=== PATIENT | female | born 1970 | race American Indian/Alaskan Native ===

== ENCOUNTER 2016-07-15 17:15 | Emergency (ER) | payer SELFPAY ==
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
[2016-07-15] MEDS ORDERED: MORPHINE IV ONE (18:29)
[2016-07-15 18:55] LABS: Hematocrit 32.5 % (30.3-42.9); Hemoglobin 10.3 gm/dl (10.1-14.3); Mean Corpuscular HGB Conc 32 % (30-34); Mean Corpuscular Volume 78 fl (79-97); Platelet Count 317 K/mm3 (140-440); Red Blood Count 4.18 M/mm3 (3.65-5.03); Red Cell Distribution Width 18.2 % (13.2-15.2); White Blood Count 3.9 K/mm3 (4.5-11.0)
[2016-07-15 18:57] LABS: Mean Corpuscular Hemoglobin 25 pg (28-32)
[2016-07-15 19:41] LABS: Basophils % (Manual) 0 % (0.0-1.8); Blastocytes % (Manual) 0 %
[2016-07-15 19:42] LABS: Anisocytosis Few; Diff Status Complete; Poikilocytosis Few
[2016-07-15 19:48] LABS: Alanine Aminotransferase 11 units/L (7-56); Albumin 3.8 g/dL (3.9-5); Albumin/Globulin Ratio 1.5 %; Alkaline Phosphatase 62 units/L (35-129); Anion Gap 17 mmol/L; Blood Urea Nitrogen 14 mg/dL (7-17); Calcium 8.8 mg/dL (8.4-10.2); Carbon Dioxide 21 mmol/L (22-30); Chloride 105.7 mmol/L (98-107); Creatine Kinase 113 units/L (30-135); Glucose 82 mg/dL (65-100); Sodium 140 mmol/L (137-145); Total Protein 6.4 g/dL (6.3-8.2)
[2016-07-15] MEDS ORDERED: DILAUDID ONE (20:37)
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
[2016-07-15] MEDS ORDERED: DILAUDID IV ONE (20:40)
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
[2016-07-15 22:45] VITALS: BP 141/74
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
== END 2016-07-15 22:41 | disposition home or self-care (01) ==
LOC: ED 17:15
DX: M54.9 Dorsalgia, unspecified (principal); M25.551 Pain in right hip; I10 Essential (primary) hypertension; M54.2 Cervicalgia; M79.602 Pain in left arm; F17.200 Nicotine dependence, unspecified, uncomplicated; V49.49XA Driver injured in collision with other motor vehicles in traffic accident, initial encounter; Y93.9 Activity, unspecified; Y92.9 Unspecified place or not applicable; Y99.9 Unspecified external cause status
CPT/HCPCS: 36415; 70450; 71010; 72125; 72128; 72131; 72170; 73060; 73090; 80053; 82550; 84703; 85007; 85025; 96374; 96375; 99285; G0480; J1170; J2270; 80320

== ENCOUNTER 2018-09-06 22:35 | Emergency (ER) | payer OTHER ==
--- NOTE | 2018-09-06 22:44 | Event Note ---
ED Screening Note Date of service: 09/06/18 Time: 22:40 ED Screening Note: 48 y/o female comes in for Headache time 1 hour n/v photophobia. Pmh thyroiddz This initial assessment/diagnostic orders/clinical plan/treatment(s) is/are subject to change based on patients health status, clinical progression and re- assessment by fellow clinical providers in the ED. Further treatment and workup at subsequent clinical providers discretion. Patient/guardian urged not to elope from the ED as their condition may be serious if not clinically assessed and managed. Initial orders include:
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
[2018-09-07] MEDS ORDERED: TYLENOL #3 PO ONE (03:36)
[2018-09-07 04:23] VITALS: BP 153/96
== END 2018-09-07 03:50 | disposition home or self-care (01) ==
LOC: ED 22:35
DX: S01.112A Laceration without foreign body of left eyelid and periocular area, initial encounter (principal); H11.32 Conjunctival hemorrhage, left eye; H05.232 Hemorrhage of left orbit; F41.9 Anxiety disorder, unspecified; J45.909 Unspecified asthma, uncomplicated; F17.200 Nicotine dependence, unspecified, uncomplicated; Y04.8XXA Assault by other bodily force, initial encounter; Y93.89 Activity, other specified; Y92.89 Other specified places as the place of occurrence of the external cause; Y99.8 Other external cause status
CPT/HCPCS: 70450; 70486

== ENCOUNTER 2018-09-14 18:59 | Emergency (ER) | payer OTHER ==
[2018-09-14 19:31] VITALS: BP 180/114
--- NOTE | 2018-09-14 19:33 | Emergency Department Report ---
Suture/Staple Removal - HPI Chief Complaint: Laceration/Recheck/Suture Stated Complaint: STITCHES REMOVED Time Seen by Provider: 09/14/18 19:28 When Sutures or [place] Placed: 09/07/18 Wound Location: left eyebrow ED Review of Systems ROS: Stated complaint: STITCHES REMOVED Other details as noted in HPI Comment: All other systems reviewed and negative ED Past Medical Hx - Past Medical History Previous Medical History?: Yes Hx Psychiatric Treatment: Yes (Anxiety) Hx Asthma: Yes - Social History Smoking Status: Current Every Day Smoker Substance Use Type: Alcohol - Medications Home Medications: Home Medications Medication Instructions Recorded Confirmed Last Taken Type oxyCODONE /ACETAMINOPHEN [Percocet 1 tab PO Q6HR PRN #16 tablet 07/15/16 Unknown Rx 5/325] Acetaminophen/Codeine [Tylenol 1 tab PO Q6H PRN #7 tab 09/14/18 Unknown Rx /Codeine # 3 tab] Ibuprofen [Motrin 800 MG tab] 800 mg PO Q8HR PRN #14 tablet 09/14/18 Unknown Rx Suture Removal Exam - Exam General: Vital signs noted. No distress. Alert and acting appropriately. Wound: No Pathologic Erythema, No Tenderness, No Drainage, No Pus, No Wound Dehiscence Other Systems: All other systems reviewed and are unremarkable. ED Recheck MDM - Medical Decision Making pt presents for suture removal had sutures placed on 09/07/08 in the left eyebrow denies any fever, erythema, or drainage from the eyebrow pt is c/o pain around the eye which she has had since the incident she denies any vision changes or drainage from the eye states she has been taking tylenol without much relief on exam has PEERL, EOMI, resolving periorbital edema and ecchymosis pt states she knows she has HTN but is not taking her medicine for it, has not seen her PCP all sutures removed and wound is well healed, no wound dehiscence, clean, dry, intact no signs of infection advised pt continue to keep area clean and dry. may use mederma for scarring purposes. follow up with a primary care doctor in the next 2-3 days. return to the emergency room for any new or worsening symptoms. please see a primary care doctor due to your elevated blood pressure and to get back on blood pressure medication. keep a blood pressure log. do not drive or operate heavy machinery while taking pain medication Critical care attestation.: If time is entered above; I have spent that time in minutes in the direct care of this critically ill patient, excluding procedure time. ED Disposition Clinical Impression: Encounter for removal of sutures, Elevated blood pressure reading Disposition: TO HOME OR SELFCARE Is pt being admited?: No Does the pt Need Aspirin: No Condition: Stable Instructions: Suture Removal (ED) Additional Instructions: continue to keep area clean and dry. may use mederma for scarring purposes. follow up with a primary care doctor in the next 2-3 days. return to the emergency room for any new or worsening symptoms. please see a primary care d octor due to your elevated blood pressure and to get back on blood pressure medication. keep a blood pressure log. do not drive or operate heavy machinery while taking pain medication Prescriptions: Ibuprofen [Motrin 800 MG tab] 800 mg PO Q8HR PRN #14 tablet PRN Reason: Pain, Moderate (4-6) Acetaminophen/Codeine [Tylenol /Codeine # 3 tab] 1 tab PO Q6H PRN #7 tab PRN Reason: Pain , Severe (7-10) Referrals: [facility] [Outside] - 2-3 Days [facility] [Provider Group] - 2-3 Days [facility] [place] [Outside] - 2-3 Days Time of Disposition: 19:29 Print Language: DANISH
== END 2018-09-14 19:53 | disposition home or self-care (01) ==
LOC: ED 18:59
DX: S01.112D Laceration without foreign body of left eyelid and periocular area, subsequent encounter (principal); F41.9 Anxiety disorder, unspecified; J45.909 Unspecified asthma, uncomplicated; F17.200 Nicotine dependence, unspecified, uncomplicated; R03.0 Elevated blood-pressure reading, without diagnosis of hypertension; X58.XXXD Exposure to other specified factors, subsequent encounter
CPT/HCPCS: 99282

== ENCOUNTER 2019-03-11 22:04 | Emergency (ER) | payer SELFPAY ==
[2019-03-11 23:51] VITALS: BP 150/97
[2019-03-12] MEDS ORDERED: ACETAMINOPHEN 500 MG TAB ONE (00:02)
[2019-03-12] MEDS ORDERED: IBUPROFEN 800 MG TAB ONE (00:03)
[2019-03-12] MEDS ORDERED: ACETAMINOPHEN 500 MG TAB PO ONE (00:06)
[2019-03-12] MEDS ORDERED: IBUPROFEN 800 MG TAB PO ONE (00:08)
--- NOTE | 2019-03-12 01:04 | XRay Report ---
LEFT EYE CORTICAL 3 VIEWS INDICATION / CLINICAL INFORMATION: Left ankle pain. COMPARISON: None available. FINDINGS: There is suggestion of slight soft tissue swelling over the lateral malleolus. Low-attenuation and sl ight cortical irregularity is demonstrated in the medial talus, consistent with degenerative change. IMPRESSION: Focal degenerative change and early osteochondral defect of the surface of the medial talus. No acute fracture. Signer Name: Randy Lay MD Signed: 03/12/2019 1:00 AM Workstation Name: [id number]
--- NOTE | 2019-03-12 01:06 | XRay Report ---
LEFT HIP 2 VIEWS INDICATION / CLINICAL INFORMATION: left hip pain. COMPARISON: None available. FINDINGS: No significant degenerative change. No fracture or other acute abnormality. Signer Name: Randy Lay MD Signed: 03/12/2019 1:01 AM Workstation Name: [id number]
--- NOTE | 2019-03-12 01:06 | XRay Report ---
LEFT SHOULDER 3 VIEWS INDICATION / CLINICAL INFORMATION: left shoulder pain. COMPARISON: None available. FINDINGS: No fracture, dislocation or other significant abnormality. Signer Name: Randy Lay MD Signed: 03/12/2019 1:02 AM Workstation Name: [id number] [id number]
== END 2019-03-12 01:44 | disposition left against medical advice (07) ==
LOC: ED 22:04
DX: M79.602 Pain in left arm (principal); Z53.21 Procedure and treatment not carried out due to patient leaving prior to being seen by health care provider

== ENCOUNTER 2019-03-29 07:36 | Emergency (ER) | payer SELFPAY ==
[2019-03-29] MEDS ORDERED: KETOROLAC 30 MG/1 ML INJ IM ONE (09:31)
--- NOTE | 2019-03-29 09:39 | Emergency Department Report ---
HPI - General Chief Complaint: Pain General Time Seen by Provider: 03/29/19 09:11 - HPI HPI: 48-year-old -[place] female presents to the emergency department with the complaint of some left shoulder pain, low back pain and left leg pain from the hip down to the ankle. All this started on when the patient slipped at a nightclub and fell. She says that it feels like the shoulder goes in and out of the joint intermittently. All areas of this patient's discomfort increased with any type of ambulation or exertion. The patient has continued to work through her injuries including using these extremities. She has tried some ibuprofen [id number] for her symptoms without any relief. The patient was here on 03/12/19 and had some x-rays done but she left prior to either being seen or getting the results. She otherwise denies any past medical history. She does present with some elevated blood pressure. She does not have a primary care physician. ED Past Medical Hx - Past Medical History Previous Medical History?: Yes Hx Psychiatric Treatment: Yes (Anxiety) Hx Asthma: Yes - Surgical History Past Surgical History?: Yes Additional Surgical History: Tubal Ligation - Social History Smoking Status: Current Every Day Smoker Substance Use Type: None - Medications Home Medications: Home Medications Medication Instructions Recorded Confirmed Last Taken Type oxyCODONE /ACETAMINOPHEN [Percocet 1 tab PO Q6HR PRN #16 tablet 07/15/16 Unknown Rx 5/325] Acetaminophen/Codeine [Tylenol 1 tab PO Q6H PRN #7 tab 09/14/18 Unknown Rx /Codeine # 3 tab] Ibuprofen [Motrin 800 MG tab] 800 mg PO Q8HR PRN #14 tablet 09/14/18 Unknown Rx Cyclobenzaprine [Flexeril] 10 mg PO TID PRN #12 tablet 03/29/19 Unknown Rx amLODIPine 5 mg PO ONCE #30 tablet 03/29/19 Unknown Rx ED Review of Systems ROS: Stated complaint: LFT SIDE PAIN EXTREME Other details as noted in HPI Comment: All other systems reviewed and negative Constitutional: denies: chills, fever Cardiovascular: denies: chest pain Gastrointestinal: denies: abdominal pain Musculoskeletal: back pain, arthralgia, myalgia Skin: denies: rash, lesions Neurological: paresthesias. denies: headache, weakness, numbness Physical Exam - Physical Exam Vital Signs: Vital Signs 03/29/19 07:39 Temperature 99.1 F Pulse Rate 98 H Respiratory 18 Rate Blood Pressure 182/95 O2 Sat by Pulse 98 Oximetry Physical Exam: GENERAL: The patient is well-developed well-nourished. HEENT: Normocephalic. Atraumatic. Patient has moist mucous membranes. EYES: Extraocular motions are intact. NECK: Supple. Trachea is midline. CHEST/LUNGS: Clear to auscultation. There is no respiratory distress noted. HEART/CARDIOVASCULAR: Regular. There is no tachycardia. There is no murmur. ABDOMEN: There is no abdominal distention. SKIN:Skin is warm and dry. . NEURO: The patient is awake, alert, and oriented. The patient is cooperative. The patient has no focal neurologic deficits. Normal speech. MUSCULOSKELETAL: There is tenderness to palpation to the left shoulder but no obvious deformity. There is some mild tenderness to palpation along the left lower extremity but she does have positive left straight leg raise test. There is no limitation range of motion. BACK: There is both lumbar and left paraspinal tenderness to palpation but no step-off or deformity. ED Course Vital Signs 03/29/19 07:39 Temperature 99.1 F Pulse Rate 98 H Respiratory 18 Rate Blood Pressure 182/95 O2 Sat by Pulse 98 Oximetry ED Medical Decision Making - Radiology Data Radiology results: image reviewed interpreted by me: X-ray of the left shoulder did not show any fracture, dislocation, or any other acute process. X-ray of the lumbar spine did not show any fracture, subluxation, or any acute process. - Medical Decision Making This patient presents with some left shoulder pain, pain to the left lower back and pain down the left leg that seems to radiate from the back. All this been going on since she had a fall on [place]. On examination the patient has some reproducible pain to palpation but no obvious deformities. Positive left sided straight leg raise test. An x-ray was done of the left shoulder and the lumbar spine that did not show any fracture, dislocation, subluxation, or any other acute process. Since the patient drove herself to be seen, she was given a dose of Toradol. The patient denies any problems with bowel or bladder, numbness or any neurological deficits. She appears low suspicion for any of the emergent back conditions such as cauda equina, epidural abscess or cord compression syndrome. The patient was seen ambulatory while in the emergency department and she both appears and feels stable. She'll be discharged home to follow up with an orthopedist and has been placed in a arm sling. The patient also presents with some elevated blood pressure. She may have a history of hypertension but has not seen a primary care physician in a few years. The patient also is uncomfortable and has been working since overnight. Patient was given a dose of Norvasc here and will be given a prescription for the same. We discussed staying away from foods that are high in salt and caffeinated products and keeping a blood pressure log. She has been given referrals for primary care, on top of the orthopedists. She will return to the emergency Department with any worsening of her symptoms or any acute distress. - Differential Diagnosis shoulder sprain, rotator cuff injury, fracture, sciatica Critical Care Time: No Critical care attestation.: If time is entered above; I have spent that time in minutes in the direct care of this critically ill patient, excluding procedure time. ED Disposition Clinical Impression: Left leg pain Hypertension Qualifiers: Hypertension type: essential hypertension Qualified Code(s): I10 - Essential (primary) hypertension Left shoulder pain Qualifiers: Chronicity: unspecified Qualified Code(s): M25.512 - Pain in left shoulder Low back pain Qualifiers: Chronicity: unspecified Back pain laterality: left Sciatica presence: with sciatica Sciatica laterality: sciatica of left side Qualified Code(s): M54.42 - Lumbago with sciatica, left side Sciatica Qualifiers: Laterality: left Qualified Code(s): M54.32 - Sciatica, left side Disposition: DC-01 TO HOME OR SELFCARE Is pt being admited?: No Condition: Stable Instructions: Sciatica (ED), Hypertension (ED), Arthralgia (ED), Back Pain (ED) Additional Instructions: Please follow up with a primary care physician in the next few days regarding your blood pressure and for a general checkup. I am giving you a referral for 2 different local orthopedic groups, Dr. Mitchell and Charlie, to follow up regarding your shoulder pain and your back and leg pains. Return to the em ergency Department with any worsening of your symptoms or any acute distress. I am starting you on a blood pressure medication called Norvasc/amlodipine. This medication is taken once per day, usually in the morning. Try and stay away from foods that are high in salt and caffeinated products. Keep a blood pressure log. You have been prescribed a medication for muscle relaxation, Flexeril, that can be sedating. This medication cannot be taken prior to driving, working, or being responsible for children, and cannot be mixed with alcohol of any quantity. Prescriptions: amLODIPine 5 mg PO ONCE #30 tablet Cyclobenzaprine [Flexeril] 10 mg PO TID PRN #12 tablet PRN Reason: Muscle Spasm Referrals: ALEISHA MITCHELL MD [Staff Physician] - 2-3 Days [facility] [Provider Group] - 2-3 Days [facility] [Outside] - 2-3 Days Forms: Work/School Release Form(ED) Time of Disposition: 10:57
--- NOTE | 2019-03-29 10:17 | XRay Report ---
LEFT SHOULDER 3 VIEWS INDICATION: left shoulder pain. COMPARISON: None. IMPRESSION: No acute osseous or soft tissue abnormality. No significant DJD. LUMBOSACRAL SPINE 3 VIEWS INDICATION: Low back pain. COMPARISON: None. IMPRESSION: No acute osseous or soft tissue abnormality. Mild facet hypertrophy is identified at L4 -5. 4 mm anterolisthesis of L4 with respect to L5 is identified which appears to be secondary to deg enerative facet arthropathy. The remaining vertebra are normal alignment. Normal disc space height. Signer Name: Obed Escalera Jr, MD Signed: 03/29/2019 10:13 AM Workstation Name: [id number]
[2019-03-29] MEDS ORDERED: amLODIPine 5 MG TAB PO ONE (10:50)
[2019-03-29 10:58] VITALS: BP 191/115
== END 2019-03-29 11:12 | disposition home or self-care (01) ==
LOC: ED 07:36
DX: M25.512 Pain in left shoulder (principal); M54.42 Lumbago with sciatica, left side; I10 Essential (primary) hypertension; F41.9 Anxiety disorder, unspecified; F17.200 Nicotine dependence, unspecified, uncomplicated; J45.909 Unspecified asthma, uncomplicated; Z98.51 Tubal ligation status; Z79.899 Other long term (current) drug therapy
CPT/HCPCS: 72100; 73030; 96372; 99284; J1885

== ENCOUNTER 2019-04-21 02:24 | Emergency (ER) | payer SELFPAY ==
[2019-04-21] MEDS ORDERED: ASPIRIN 325 MG TAB PO ONE (02:35)
[2019-04-21 03:11] LABS: Basophils % (Auto) 0.6 % (0.0-1.8); Eosinophils # (Auto) 0.1 K/mm3 (0.0-0.4); Eosinophils % (Auto) 2.2 % (0.0-4.3); Hematocrit 36.5 % (30.3-42.9); Hemoglobin 11.5 gm/dl (10.1-14.3); Lymphocytes # (Auto) 2.6 K/mm3 (1.2-5.4); Lymphocytes % (Auto) 46.2 % (13.4-35.0); Mean Corpuscular HGB Conc 32 % (30-34); Mean Corpuscular Volume 76 fl (79-97); Monocytes # (Auto) 0.5 K/mm3 (0.0-0.8); Monocytes % (Auto) 9.9 % (0.0-7.3); Platelet Count 385 K/mm3 (140-440); Red Cell Distribution Width 19.8 % (13.2-15.2)
[2019-04-21 03:35] LABS: BUN/Creatinine Ratio 16; Blood Urea Nitrogen 13 mg/dL (7-17); Calcium 9.5 mg/dL (8.4-10.2); Hemolysis Index 10
--- NOTE | 2019-04-21 04:03 | XRay Report ---
CHEST 2 VIEWS INDICATION / CLINICAL INFORMATION: Chest Pain. COMPARISON: One view of the chest from 07/15/2016. FINDINGS: SUPPORT DEVICES: None. HEART / MEDIASTINUM: No significant abnormality. LUNGS / PLEURA: No significant pulmonary or pleural abnormality. No pneumothorax. ADDITIONAL FINDINGS: No significant additional findings. IMPRESSION: 1. No acute abnormality of the chest. Signer Name: Dave Malhotra MD Signed: 04/21/2019 3:58 AM Workstation Name: [id number]
[2019-04-21 04:23] VITALS: BP 164/98
--- NOTE | 2019-04-21 04:50 | Emergency Department Report ---
ED General Adult HPI - General Chief complaint: Chest Pain Stated complaint: POSS HIGH BP Time Seen by Provider: 04/21/19 04:29 Source: patient Mode of arrival: Ambulatory Limitations: No Limitations - History of Present Illness Initial comments: HPI: "I have a lot going. on." Mrs. Kenyon is a 48 yo female with hx of HTN, asthma, anxiety, tobacco and co juarez abuse who presents with multiple social stressors. She needs a few days off from work to get things in order. Her mother 2 years ago. She has had a hard time handling the estate among family members. Her brother may become a bustamante of the state in [place]. He is currently residing in a [facility]. She has a new job which has been stressful. She has not taken care of her health because she has not had health insurance. Last use of cocaine one week ago. She knew that she was not well. She had mild headache and nausea while at work. She took her son's BP medication at home. SBP 214. Denies chest pain. She admits to depression. Denies SI/HI. -: Gradual, days(s) (1) Location: head Quality: dull Consistency: now resolved Improves with: medication (Blood pressure medication) Worsens with: none Associated Symptoms: headaches, other (Nausea) Treatments Prior to Arrival: other (2 blood pressure medications) - Related Data Previous Rx's Medication Instructions Recorded Last Taken Type oxyCODONE /ACETAMINOPHEN [Percocet 1 tab PO Q6HR PRN #16 tablet 07/15/16 Unknown Rx 5/325] Acetaminophen/Codeine [Tylenol 1 tab PO Q6H PRN #7 tab 09/14/18 Unknown Rx /Codeine # 3 tab] Ibuprofen [Motrin 800 MG tab] 800 mg PO Q8HR PRN #14 tablet 09/14/18 Unknown Rx Cyclobenzaprine [Flexeril] 10 mg PO TID PRN #12 tablet 03/29/19 Unknown Rx amLODIPine 5 mg PO ONCE #30 tablet 03/29/19 Unknown Rx amLODIPine 10 mg PO DAILY #30 tab 04/21/19 Unknown Rx hydroCHLOROthiazide [HCTZ] 25 mg PO QDAY #30 tablet 04/21/19 Unknown Rx Allergies Allergy/AdvReac Type Severity Reaction Status Date / Time No Known Allergies Allergy Verified 04/21/19 02:34 ED Review of Systems ROS: Stated complaint: POSS HIGH BP Other details as noted in HPI Comment: All other systems reviewed and negative Constitutional: denies: fever, malaise Cardiovascular: denies: chest pain, palpitations Gastrointestinal: nausea Neurological: headache ED Past Medical Hx - Past Medical History Previous Medical History?: Yes Hx Hypertension: Yes Hx Psychiatric Treatment: Yes (Anxiety) Hx Asthma: Yes - Surgical History Past Surgical History?: Yes Additional Surgical History: Tubal Ligation. - Family History Family history: hypertension - Social History Smoking Status: Current Every Day Smoker Substance Use Type: Cocaine - Medications Home Medications: Home Medications Medication Instructions Recorded Confirmed Last Taken Type oxyCODONE /ACETAMINOPHEN [Percocet 1 tab PO Q6HR PRN #16 tablet 07/15/16 Unknown Rx 5/325] Acetaminophen/Codeine [Tylenol 1 tab PO Q6H PRN #7 tab 09/14/18 Unknown Rx /Codeine # 3 tab] Ibuprofen [Motrin 800 MG tab] 800 mg PO Q8HR PRN #14 tablet 09/14/18 Unknown Rx Cyclobenzaprine [Flexeril] 10 mg PO TID PRN #12 tablet 03/29/19 Unknown Rx amLODIPine 5 mg PO ONCE #30 tablet 03/29/19 Unknown Rx amLODIPine 10 mg PO DAILY #30 tab 04/21/19 Unknown Rx hydroCHLOROthiazide [HCTZ] 25 mg PO QDAY #30 tablet 04/21/19 Unknown Rx ED Physical Exam - General Limitations: No Limitations General appearance: alert, in no apparent distress, other (Tearful upset talkative) - Head Head exam: Present: atraumatic, normocephalic - Eye Eye exam: Present: normal appearance - ENT ENT exam: Present: mucous membranes moist - Neck Neck exam: Present: normal inspection, full ROM - Respiratory Respiratory exam: Present: normal lung sounds bilaterally. Absent: respiratory distress, wheezes, rales, rhonchi - Cardiovascular Cardiovascular Exam: Present: regular rate, normal rhythm, normal heart sounds. Absent: systolic murmur, diastolic murmur, rubs, gallop - GI/Abdominal GI/Abdominal exam: Present: soft, normal bowel sounds. Absent: distended, tenderness, guarding, rebound - Extremities Exam Extremities exam: Present: normal inspection - Neurological Exam Neurological exam: Present: alert, oriented X3 - Psychiatric Psychiatric exam: Present: normal affect, normal mood - Skin Skin exam: Present: warm, dry, intact, normal color. Absent: rash ED Course Vital Signs 04/21/19 04/21/19 02:29 04:22 Temperature 99.2 F Pulse Rate 103 H 84 Respiratory 18 17 Rate Blood Pressure 186/89 Blood Pressure 164/98 [Left] O2 Sat by Pulse 99 97 Oximetry ED Medical Decision Making - Lab Data Result diagrams: 04/21/19 02:46 04/21/19 02:46 Laboratory Results - last 24 hr 04/21/19 04/21/19 04/21/19 02:46 02:46 02:46 WBC 5.5 RBC 4.80 Hgb 11.5 Hct 36.5 MCV 76 L MCH 24 L MCHC 32 RDW 19.8 H Plt Count 385 Lymph % (Auto) 46.2 H [place] % (Auto) 9.9 H Eos % (Auto) 2.2 Baso % (Auto) 0.6 Lymph # 2.6 [place] # 0.5 Eos # 0.1 Baso # 0.0 Seg Neutrophils % 41.1 Seg Neutrophils # 2.3 Sodium 139 Potassium 4.3 Chloride 105.3 Carbon Dioxide 19 L Anion Gap 19 BUN 13 Creatinine 0.8 Estimated GFR > 60 BUN/Creatinine Ratio 16 Glucose 202 H Calcium 9.5 Troponin T < 0.010 HCG, Qual Negative - Medical Decision Making 1. acute depression: no SI/HI, recommended outpatient mental health resources 2. hypertensive urgency, asymptomatic: no evidence of end organ acute damage, labs WNL, EKG normal, repeat BP in ED without treatment 168/84, recommended avoidance of cocaine use 3. tension headache: No red flags such as neurological symptoms or sudden onset. Headache is resolved without treatment. Prescribed amlodipine and hydrochlorothiazide given referral to outpatient medical physician Critical care attestation.: If time is entered above; I have spent that time in minutes in the direct care of this critically ill patient, excluding procedure time. ED Disposition Clinical Impression: Hypertensive urgency, Tension headache Disposition: DC-01 TO HOME OR SELFCARE Is pt being admited?: No Does the pt Need Aspirin: No Condition: Stable Instructions: Hypertension (ED) Prescriptions: amLODIPine 10 mg PO DAILY #30 tab hydroCHLOROthiazide [HCTZ] 25 mg PO QDAY #30 tablet Referrals: GAVIOTA ASTUDILLO MD [Staff Physician] - 3-5 Days Forms: Work/School Release Form(ED)
== END 2019-04-21 05:00 | disposition home or self-care (01) ==
LOC: ED 02:24
DX: I16.0 Hypertensive urgency (principal); G44.209 Tension-type headache, unspecified, not intractable; I10 Essential (primary) hypertension; J45.909 Unspecified asthma, uncomplicated; Z98.51 Tubal ligation status; F12.10 Cannabis abuse, uncomplicated; F17.200 Nicotine dependence, unspecified, uncomplicated
CPT/HCPCS: 36415; 71046; 80048; 84484; 84703; 85025; 93005; 93010

== ENCOUNTER 2020-04-06 15:56 | Emergency (ER) | payer SELFPAY ==
[2020-04-06 16:11] VITALS: BP 151/97
--- NOTE | 2020-04-06 16:15 | Event Note ---
ED Screening Note ED Screening Note: skin rash This initial assessment/diagnostic orders/clinical plan/treatment(s) is/are subject to change based on patients health status, clinical progression and re- assessment by fellow clinical providers in the ED. Further treatment and workup at subsequent clinical providers discretion. Patient/guardian urged not to elope from the ED as their condition may be serious if not clinically assessed and managed. Initial orders include:
--- NOTE | 2020-04-06 16:33 | Emergency Department Report ---
Chief Complaint: Skin/Abscess/Foreign Body Stated Complaint: BED BUG BITES Time Seen by Provider: 04/06/20 16:14 - HPI History of Present Illness: 49-year-old -Greek female patient presents with complaints of 2 itchy bumps on the right arm x yesterday. Patient states she noticed the bumps on her arms after staying [place] a motel the night before and suspects that there were bedbugs. She denies any other itchy lesions or contacts with similar symptoms. Patient also denies any fever/chills/sweats, swelling, or joint pains. She denies trying any OTC medications for symptoms. Lesions appear to be consistent with insect bite, likely bedbugs. Recommend OTC Claritin and hydrocortisone cream. Also discussed importance of washing her items in hot water and how to contain bedbugs spread. Patient is stable for discharge home and follow-up outpatient with the PCP. Discussed signs and symptoms that should prompt immediate return to the emergency department in detail with patient who verbalizes understanding. - Exam Vital Signs: Vital Signs 04/06/20 16:01 Temperature 98.9 F Pulse Rate 91 H Respiratory 18 Rate Blood Pressure 151/97 O2 Sat by Pulse 96 Oximetry MSE screening note: Focused history and physical exam performed. Due to findings the following was ordered: ED Disposition for MSE Clinical Impression: Insect bite Qualifiers: Encounter type: initial encounter Site of insect bite: forearm Laterality: right Qualified Code(s): S50.861A - Insect bite (nonvenomous) of right forearm, initial encounter Bed bug bite Qualifiers: Encounter type: initial encounter Qualified Code(s): W57.XXXA - Bitten or stung by nonvenomous insect and other nonvenomous arthropods, initial encounter Disposition: MED SCREENING EXAM-LEFT Is pt being admited?: No Condition: Stable Instructions: Bedbugs, Insect Bite, Adult, [id number] Additional Instructions: Pleas purchase over the counter hydrocortisone cream and loratadine (Claritin) and use as needed for itching. If you develop new or worsening symptoms, seek immediate emergency treatment Referrals: [facility] [Provider Group] - 3-5 Days ED Physical Exam - General Limitations: No Limitations General appearance: alert, in no apparent distress - Head Head exam: Present: atraumatic, normocephalic - Eye Eye exam: Present: normal appearance. Absent: scleral icterus - Neck Neck exam: Present: full ROM - Respiratory Respiratory exam: Present: normal lung sounds bilaterally. Absent: respiratory distress - Cardiovascular Cardiovascular Exam: Present: regular rate, normal rhythm - Extremities Exam Extremities exam: Present: full ROM, other (2 papules noted to right forearm that are mildly erythemic with mild swelling; lesions appear to be consistent with an insect bite; no cellulitic changes are noted; no drainage is noted) - Back Exam Back exam: Present: full ROM - Neurological Exam Neurological exam: Present: alert, oriented X3, normal gait - Psychiatric Psychiatric exam: Present: normal affect, normal mood - Skin Skin exam: Present: warm, dry, intact. Absent: cyanosis, diaphoretic ED Review of Systems ROS: Stated complaint: BED BUG BITES Other details as noted in HPI Constitutional: denies: chills, fever Respiratory: denies: cough, shortness of breath Cardiovascular: denies: chest pain Gastrointestinal: denies: nausea, vomiting Musculoskeletal: denies: joint swelling, arthralgia Neurological: denies: headache Hematological/Lymphatic: denies: easy bleeding
== END 2020-04-06 16:47 | disposition left against medical advice (07) ==
LOC: ED 15:56
DX: S50.861A Insect bite (nonvenomous) of right forearm, initial encounter (principal); Z53.21 Procedure and treatment not carried out due to patient leaving prior to being seen by health care provider; W54.0XXA Bitten by dog, initial encounter; Y93.89 Activity, other specified; Y92.89 Other specified places as the place of occurrence of the external cause; Y99.8 Other external cause status